=== PATIENT | female | born 1980 | race Caucasian/White ===

== ENCOUNTER 2021-09-23 20:24 | Emergency (ER) | payer OTHER ==
[~2021-09-23] VITALS: Ht 162.6 cm; Wt 86.2 kg
[~2021-09-23 20:24] MED LIST: MACROBID; PERCOCET
[2021-09-23 20:34] VITALS: BP_SYST 128
--- NOTE | 2021-09-23 21:08 | NUR ---
Patient to ER bed 05 to gown for evaluation. Side rails up.
--- NOTE | 2021-09-23 21:09 | NUR ---
Dr Drummond evaluating patient at bedside
[2021-09-23 21:15] VITALS: BP_SYST 128
--- NOTE | 2021-09-23 21:17 | NUR ---
41 YR OLD FEMALE AOX4, AMBULATORY WITH COMPLAINT OF VAGINAL BLEEDING FOR ONE HOUR. PT IS AUDIBLY CRYING AND UPSET. PT STATES "I HAVE HAD THREE MISCARRIAGE IN THE LAST THREE YEARS" PT REPORTS HAVING 6 LIVING CHILDREN. PT PROVIDED WITH DISPOSABLE UNDERWEAR AND MENSTRAL PADS. PT HAS HISTORY OF BRAIN ABNORMALITY THAT PERHAPS WAS MISDIAGNOSED PER PT. PT DENIES ANY PAIN OR DIZZYNESS AT THIS TIME. MD PLACED ORDER FOR ULTRASOUND. WILL MONITOR NEEDED.
--- NOTE | 2021-09-23 21:49 | NUR ---
AISHWARYA AT THE BEDSIDE PERFORMING ULTRASOUND TO CHECK FETUS, AT THE BEDSIDE FOR EVAL FOLLOW UP. MD ANSWERED PT'S QUESTIONS REGARDING HEART RATE. PT VERBALIZED UNDERSTANDING.
[2021-09-23 21:51] LABS: BASOPHILS # (AUTO) 0.1 K/uL (0.0-0.2); EOSINOPHILS # (AUTO) 0.2 K/uL (0.0-0.4); LYMPHOCYTES # (AUTO) 1.9 K/uL (1.0-5.5); LYMPHOCYTES % (AUTO) 23.8 % (20.5-51.5); MEAN CORPUSCULAR HEMOGLOBIN 29 pg (27-31); MEAN CORPUSCULAR HGB CONC 33 % (32-36); MEAN CORPUSCULAR VOLUME 86 fL (79.0-98.0); MONOCYTES # (AUTO) 0.7 K/uL (0.0-1.0); MONOCYTES % (AUTO) 8.2 % (1.7-9.3); NEUTROPHILS # (AUTO) 5.2 K/uL (1.8-7.7); PLATELET COUNT (AUTO) 140 K/uL (130-430); RED BLOOD CELL COUNT(AUTO) 4.17 MIL/uL (4.2-6.2); RED CELL DISTRIBUTION WIDTH 16.8 % (9.0-15.0); WHITE BLOOD COUNT (AUTO) 8.2 K/uL (4.8-10.8)
[2021-09-23 22:04] LABS: PROTHROMBIN TIME 9.7 SECS (9.5-12.5)
--- NOTE | 2021-09-23 23:00 | NUR ---
URINE COLLECTED SENT TO LAB
[2021-09-23 23:41] LABS: BILIRUBIN,URINE NEGATIVE (NEGATIVE); BLOOD, URINE 3+ (NEGATIVE); CLARITY/URINE CLEAR (CLEAR); COLOR,URINE YELLOW (YELLOW); GLUCOSE,URINE NEGATIVE (NEGATIVE); KETONES,URINE NEGATIVE (NEGATIVE); LEUKOCYTE ESTERASE ,URINE NEGATIVE (NEGATIVE); NITRITE, URINE NEGATIVE (NEGATIVE); PROTEIN URINE NEGATIVE (NEGATIVE); UROBILINOGEN,URINE 0.2 (0.2-1.0)
--- NOTE | 2021-09-24 01:29 | NUR ---
PT DISCHARGED WITH [facility] INSTRUCTIONS, PT ENCOURAGED TO FOLLOW UP WITH OBGYN DUE TO EXCESSIVE BLEEDING. PT INSTRUCTED TO STAY ON BEDREST UNTIL NEXT OPPORTUNITY TO SEE OBGYN. PT VERBALIZED UNDERSTANDING. ALL QUESTIONS ANSWERED. PT DISCHARGED WITH ALL BELONGINGS VIA WHEELCHAIR TO AWAITING CAR BY RN, ACCOMPANIED BY .
== END 2021-09-24 01:50 | disposition home or self-care (01) ==
LOC: SED 20:24
DX: O20.0 Threatened abortion (principal); Z3A.13 13 weeks gestation of pregnancy
CPT/HCPCS: 36415; 76801; 81003; 81025; 84702; 85025; 85610-TC; 85730-TC; 86900; 86901; 99284

== ENCOUNTER 2022-02-25 14:37 | Emergency (ER) | payer OTHER ==
[~2022-02-25] VITALS: Ht 162.6 cm; Wt 91.2 kg
[2022-02-25 14:56] VITALS: BP_SYST 123
--- NOTE | 2022-02-25 15:33 | NUR ---
SEEN AND EVALUATED BY DR CABRERA IN TRIAGE ROOM
--- NOTE | 2022-02-25 16:04 | NUR ---
Jia murdock in [facility] - 02/25/22 at 1737 by HERI SEEN AND EVALUATED BY DR CABRERA IN TRIAGE ROOM
[2022-02-25 16:36] LABS: BASOPHILS % (AUTO) 0.6 % (0.0-2.0); EOSINOPHILS # (AUTO) 0.1 K/uL (0.0-0.4); EOSINOPHILS % (AUTO) 1.7 % (0.0-4.0); HEMATOCRIT 36.2 % (36-48); HEMOGLOBIN 11.9 g/dL (12.0-16.0); LYMPHOCYTES # (AUTO) 1.6 K/uL (1.0-5.5); LYMPHOCYTES % (AUTO) 19.8 % (20.5-51.5); MEAN CORPUSCULAR HEMOGLOBIN 29 pg (27-31); MEAN CORPUSCULAR HGB CONC 33 % (32-36); MEAN CORPUSCULAR VOLUME 87 fL (79.0-98.0); MONOCYTES # (AUTO) 0.6 K/uL (0.0-1.0); MONOCYTES % (AUTO) 7.1 % (1.7-9.3); NEUTROPHILS # (AUTO) 5.6 K/uL (1.8-7.7); NEUTROPHILS % (AUTO) 70.8 % (40.0-70.0); PLATELET COUNT (AUTO) 151 K/uL (130-430); RED BLOOD CELL COUNT(AUTO) 4.18 MIL/uL (4.2-6.2); RED CELL DISTRIBUTION WIDTH 14.3 % (9.0-15.0)
[2022-02-25 16:39] LABS: CALCIUM 8.9 mg/dL (8.4-11.0); CREATININE 0.64 mg/dL (0.55-1.30); POTASSIUM 3.8 mmol/L (3.5-5.1)
[2022-02-25 16:58] LABS: ALBUMIN 2.2 g/dL (3.4-4.8); FREE T4 (FREE THYROXINE) 0.8 ng/dl (0.8-1.5); THYROID STIMULATING HORMONE 1.31 uIu/mL (0.36-3.74); TOTAL BILIRUBIN 0.1 mg/dL (0.0-1.0)
--- NOTE | 2022-02-25 17:05 | NUR ---
DR CABRERA OUT TO TRIAGE ROOM FOR RE-EVALUATION
--- NOTE | 2022-02-25 17:35 | NUR ---
Patient given written and verbal discharge instructions and verbalizes understanding. ER MD discussed with patient the results and treatment provided. Patient in stable condition. ID arm band removed. Rx of NONE given. Patient educated on pain management and to follow up with PMD. Pain Scale 0/10. Opportunity for questions provided and answered. Medication side effect fact sheet provided.
== END 2022-02-25 17:33 | disposition home or self-care (01) ==
LOC: SED 14:37
DX: O99.413 Diseases of the circulatory system complicating pregnancy, third trimester (principal); Z79.899 Other long term (current) drug therapy; Z3A.34 34 weeks gestation of pregnancy
CPT/HCPCS: 36415; 80053; 84439; 84443; 84479; 85025; 93005; 99284

== ENCOUNTER 2022-03-25 13:27 | Emergency (ER) | payer OTHER ==
[~2022-03-25] VITALS: Ht 162.6 cm; Wt 93.4 kg
[2022-03-25 13:46] VITALS: BP_SYST 114
--- NOTE | 2022-03-25 15:00 | NUR ---
Patient to ER bed HALLWAY to gown for evaluation. Side rails up.
--- NOTE | 2022-03-25 15:15 | NUR ---
PT STABLE, IN NAD, VSS, AAOx3 SOME MILD PALPITATIONS, EKG COMPLETED IN TRIAGE
--- NOTE | 2022-03-25 15:30 | NUR ---
ER at bedside examining patient.
[2022-03-25 15:32] LABS: BASOPHILS % (AUTO) 0.6 % (0.0-2.0); EOSINOPHILS # (AUTO) 0.1 K/uL (0.0-0.4); EOSINOPHILS % (AUTO) 1.1 % (0.0-4.0); HEMATOCRIT 39.1 % (36-48); LYMPHOCYTES # (AUTO) 1.4 K/uL (1.0-5.5); MEAN CORPUSCULAR VOLUME 88 fL (79.0-98.0); MONOCYTES # (AUTO) 0.6 K/uL (0.0-1.0); MONOCYTES % (AUTO) 7.3 % (1.7-9.3); NEUTROPHILS # (AUTO) 6.1 K/uL (1.8-7.7); PLATELET COUNT (AUTO) 137 K/uL (130-430); RED BLOOD CELL COUNT(AUTO) 4.44 MIL/uL (4.2-6.2); RED CELL DISTRIBUTION WIDTH 16.4 % (9.0-15.0); WHITE BLOOD COUNT (AUTO) 8.3 K/uL (4.8-10.8)
[2022-03-25 15:55] LABS: ANION GAP 6 (5-15); CALCIUM 9.4 mg/dL (8.4-11.0); CHLORIDE 101 mmol/L (98-107); CREATININE 0.81 mg/dL (0.55-1.30); GLUCOSE 76 mg/dL (70-99); POTASSIUM 4.4 mmol/L (3.5-5.1); UREA NITROGEN, BLOOD 17 mg/dL (8-21)
[2022-03-25 16:10] LABS: ALANINE AMINOTRANSFERASE 33 U/L (12-78); ALBUMIN 2.4 g/dL (3.4-4.8); ASPARTATE AMINOTRANSFERASE 28 U/L (10-37); FREE T4 (FREE THYROXINE) 0.8 ng/dl (0.8-1.5); TOTAL BILIRUBIN 0.2 mg/dL (0.0-1.0)
[2022-03-25 16:41] LABS: GFR AFRICAN AMERICAN 101 mL/min (>90)
--- NOTE | 2022-03-25 17:15 | NUR ---
Patient given written and verbal discharge instructions and verbalizes understanding. ER MD discussed with patient the results and treatment provided. Patient in stable condition. ID arm band removed.
== END 2022-03-25 17:15 | disposition home or self-care (01) ==
LOC: SED 13:27
DX: O99.413 Diseases of the circulatory system complicating pregnancy, third trimester (principal); Z3A.32 32 weeks gestation of pregnancy; Z86.79 Personal history of other diseases of the circulatory system
CPT/HCPCS: 36415; 76805-TC; 80053; 84439; 84484; 85025; 93005; 99285

== ENCOUNTER 2022-04-02 18:36 | Emergency (ER) | payer OTHER ==
[~2022-04-02] VITALS: Ht 162.6 cm; Wt 79.4 kg
[2022-04-02 18:44] VITALS: BP_SYST 138
[2022-04-02] MEDS ORDERED: ASPIRIN 81 MG TAB.CHEW PO ONE (19:00)
[2022-04-02 19:29] LABS: BASOPHILS # (AUTO) 0.1 K/uL (0.0-0.2); BASOPHILS % (AUTO) 0.9 % (0.0-2.0); EOSINOPHILS # (AUTO) 0.2 K/uL (0.0-0.4); EOSINOPHILS % (AUTO) 2.9 % (0.0-4.0); HEMATOCRIT 39.3 % (36-48); LYMPHOCYTES # (AUTO) 1.5 K/uL (1.0-5.5); LYMPHOCYTES % (AUTO) 24.6 % (20.5-51.5); MEAN CORPUSCULAR VOLUME 88 fL (79.0-98.0); MONOCYTES # (AUTO) 0.6 K/uL (0.0-1.0); MONOCYTES % (AUTO) 9.4 % (1.7-9.3); NEUTROPHILS # (AUTO) 3.9 K/uL (1.8-7.7); NEUTROPHILS % (AUTO) 62.2 % (40.0-70.0); PLATELET COUNT (AUTO) 168 K/uL (130-430); RED BLOOD CELL COUNT(AUTO) 4.46 MIL/uL (4.2-6.2); RED CELL DISTRIBUTION WIDTH 16.8 % (9.0-15.0); WHITE BLOOD COUNT (AUTO) 6.2 K/uL (4.8-10.8)
[2022-04-02 19:33] LABS: ANION GAP 7 (5-15); CALCIUM 8.7 mg/dL (8.4-11.0); CHLORIDE 104 mmol/L (98-107); CREATININE 0.86 mg/dL (0.55-1.30); GLUCOSE 99 mg/dL (70-99); UREA NITROGEN, BLOOD 16 mg/dL (8-21)
[2022-04-02 19:38] LABS: GFR AFRICAN AMERICAN 94 mL/min (>90)
[2022-04-02 19:44] LABS: ALANINE AMINOTRANSFERASE 80 U/L (12-78); ALBUMIN 2.5 g/dL (3.4-4.8); ASPARTATE AMINOTRANSFERASE 28 U/L (10-37); TOTAL BILIRUBIN 0.2 mg/dL (0.0-1.0)
--- NOTE | 2022-04-02 19:44 | NUR ---
Placed in room 5 . Placed on front desk monitor, blood pressure machine and pulse oximeter. To gown for exam. Side rails up. Report given to TAMY LOPEZ.
[2022-04-02 19:46] LABS: HCG,QUANTITATIVE 157 mIU/ML (0-6)
[2022-04-02 19:58] LABS: BILIRUBIN,URINE NEGATIVE (NEGATIVE); BLOOD, URINE 3+ (NEGATIVE); COLOR,URINE YELLOW (YELLOW); GLUCOSE,URINE NEGATIVE (NEGATIVE); KETONES,URINE NEGATIVE (NEGATIVE); NITRITE, URINE NEGATIVE (NEGATIVE); PH,URINE 6.5 (5.0-8.0); PROTEIN URINE NEGATIVE (NEGATIVE); UROBILINOGEN,URINE 0.2 (0.2-1.0)
--- NOTE | 2022-04-02 20:00 | NUR ---
Pt from home with c/o chest pressure and head pain when breast feeding. Pt states she had these issues when and is now post and still experiencing it. VSS.
--- NOTE | 2022-04-02 20:05 | NUR ---
MD at bedside with patient for evaluation.
[2022-04-02 20:09] LABS: CLARITY/URINE HAZY (CLEAR); LEUKOCYTE ESTERASE ,URINE TRACE (NEGATIVE)
[2022-04-02 20:12] LABS: BACTERIA,URINE FEW /HPF (None Seen); MUCUS,URINE None Seen /LPF (None Seen); RBC,URINE 20-50 /HPF (0-3)
--- NOTE | 2022-04-02 23:50 | NUR ---
Pt updated with care info. VSS. Pt given water. Safety precautions in place and conneted to monitor.
[2022-04-03] MEDS ORDERED: iohexoL 350 mgI/mL, 100 ML INFUS..BTL IV ONE (01:27)
[2022-04-03 03:54] VITALS: BP_SYST 113
--- NOTE | 2022-04-03 03:56 | NUR ---
DC PT HOME AAOX4, NO SOB NOTED AND NOT IN ANY DISTRESS. DC INSTRUCTION WERE GIVEN TO PT ALSO INSTRUCTED TO F/U WITH HER PCP. SHE VERBALIZED UNDERSTANDING
== END 2022-04-03 03:55 | disposition home or self-care (01) ==
LOC: SED 18:36
DX: R07.89 Other chest pain (principal); R06.02 Shortness of breath
CPT/HCPCS: 99285; 93970; 71045; 80053; 81000; 84702; 83880; 85025; 85379; 84484; 36415; 93005; 71275; 76376; Q9967